=== PATIENT | male | born 1985 | race Caucasian/White ===

== ENCOUNTER 2017-06-16 16:00 | Emergency (ER) | payer OTHER ==
[~2017-06-16] VITALS: Ht 188 cm; Wt 72.3 kg
[2017-06-16 16:11] VITALS: BP 133/63
[2017-06-16] MEDS ORDERED: KETOROLAC 30 MG/ML VIAL IVP ONE (16:30)
--- NOTE | 2017-06-16 16:30 | NUR ---
PT. ARRIVED TO ED WITH C/O OF NON RADIATING SHARP CHEST PAIN IN THE MID LEFT CHEST AREA . PT. STATED " CHEST PAIN HAPPENED WHEN I WAS DRIVING ABOUT 3 HOURS AGO AND LASTED ABOUT 20 MIN THEN WENT AWAY, BUT I DID HAVE SOME NUMBNESS/ TINGLING IN MY LEFT ARM BUT NO PAIN, SOMETHING SIMILAR HAPPENED TO ME LAST WEEK WHEN I WENT HIKING BUT WENT AWAY WELL ". RR IS EVEN AND UNLABORED. A NORMAL SINUS RHYTHM IS PRESSENT ON THE MONITOR. VSS. PAIN LEVEL OF 2/10 RIGHT NOW STILL IN CHEST NON RADIATING. DENIES ANY NAUSEA AND VOMITING AT THIS TIME OR DIAHRRHEA, NO SOB OR COUGH AT THIS TIME . MD NOTIFIED , WILL CONTINUE TO MONITOR.
[2017-06-16 16:58] LABS: BASOPHILS # (AUTO) 0.1 K/uL (0.00-0.22); BASOPHILS % (AUTO) 2.4 % (0.0-2.0); EOSINOPHILS # (AUTO) 0.1 K/uL (0-0.4); EOSINOPHILS % (AUTO) 1.9 % (0.0-4.0); HEMATOCRIT 40.5 % (36-52); HEMOGLOBIN 13.9 g/dL (12.0-18.0); LYMPHOCYTES # (AUTO) 2.2 K/uL (2.0-11.5); LYMPHOCYTES % (AUTO) 39.6 % (20.5-51.1); MEAN CORPUSCULAR HEMOGLOBIN 32 pg (27-31); MEAN CORPUSCULAR HGB CONC 34 g/dL (33-37); MEAN CORPUSCULAR VOLUME 93.4 fL (80-94); MONOCYTES # (AUTO) 0.3 K/uL (0.8-1.0); MONOCYTES % (AUTO) 4.6 % (1.7-9.3); NEUTROPHILS # (AUTO) 2.9 K/uL (1.8-7.7); NEUTROPHILS % (AUTO) 51.5 % (42.2-75.2); PLATELET COUNT (AUTO) 297 K/uL (140-450); RED BLOOD CELL COUNT(AUTO) 4.34 MIL/uL (4.20-6.10); RED CELL DISTRIBUTION WIDTH 12.2 % (11.6-13.7); WHITE BLOOD COUNT (AUTO) 5.6 K/uL (4.8-10.8)
[2017-06-16 16:58] LABS: APPEARANCE,URINE CLEAR (CLEAR); BILIRUBIN,URINE NEGATIVE (NEGATIVE); BLOOD, URINE NEGATIVE (NEGATIVE); LEUKOCYTE ESTERASE ,URINE NEGATIVE (NEGATIVE); NITRITE, URINE NEGATIVE (NEGATIVE); PH,URINE 7.5 (5.0-9.0); UGLUCOSE NEGATIVE (NEGATIVE)
[2017-06-16 17:02] LABS: COLOR,URINE STRAW (YELLOW)
[2017-06-16 17:08] LABS: BARBITURATE, URINE NEG. ng/ml (NEG <=200); BENZODIAZEPINE, URINE NEG. ng/mL (NEG <=200); CANNABINOID, URINE NEG. ng/mL (NEG <=50); COCAINE, URINE NEG. ng/mL (NEG <=300); OPIATE, URINE NEG. ng/mL (NEG <=2000); PHENCYCLIDINE SCREEN,URINE NEG. ng/mL (NEG <=25)
[2017-06-16 17:10] LABS: ANION GAP 9.9 (8-16); CARBON DIOXIDE 30.6 mmol/L (21-32); CHLORIDE 105 mmol/L (98-107); CREATININE 0.8 mg/dL (0.7-1.3); GFR ARICAN-AMERICAN 145 mL/min (>90); GLUCOSE 186 mg/dL (74-106); POTASSIUM 3.5 mmol/L (3.5-5.1); SODIUM SERUM 142 mmol/L (136-145); UREA NITROGEN, BLOOD 14 mg/dL (7-18)
[2017-06-16 17:16] LABS: PROTHROMBIN TIME 10.8 secs (10.8-13.4)
[2017-06-16 17:17] LABS: ALBUMIN 3.8 g/dL (3.4-5.0); ASPARTATE AMINOTRANSFERASE 21 U/L (15-37); TOTAL BILIRUBIN 0.4 mg/dL (0.0-1.0)
--- NOTE | 2017-06-16 17:30 | NUR ---
PT. IN BED RESTING, VSS, RR EVEN AND UNLABORED, BED IN LOWEST POSITION, AAO X 4. WILL CONTUINUE TO MONITOR.
[2017-06-16 18:15] VITALS: BP 108/71
--- NOTE | 2017-06-16 18:15 | NUR ---
Patient discharged with v/s stable. Written and verbal after care instructions given and explained. Patient alert, oriented and verbalized understanding of instructions. Ambulatory with steady gait. All questions addressed prior to discharge. ID band removed. Patient advised to follow up with PMD. Rx of MOTRIN 800 MG given. Patient educated on indication of medication including possible reaction and side effects. Opportunity to ask questions provided and answered.
== END 2017-06-16 18:15 | disposition home or self-care (01) ==
LOC: MED 16:00
DX: R07.89 Other chest pain (principal)
CPT/HCPCS: 36415; 71045; 80053; 80305; 81003; 82550; 84484; 85025; 85610; 85730; 93005; 96374; 99285; G0482; J1885; Q0092

== ENCOUNTER 2017-11-20 12:35 | Emergency (ER) | payer OTHER ==
[~2017-11-20] VITALS: Ht 188 cm; Wt 63.5 kg
[2017-11-20 12:41] VITALS: BP 140/83
[2017-11-20 14:40] VITALS: BP 138/79
== END 2017-11-20 14:40 | disposition home or self-care (01) ==
LOC: MED 12:35
DX: R42 Dizziness and giddiness (principal); J32.9 Chronic sinusitis, unspecified
CPT/HCPCS: 99283

== ENCOUNTER 2019-03-06 00:14 | Emergency (ER) | payer OTHER ==
[~2019-03-06] VITALS: Ht 188 cm; Wt 63.5 kg
[2019-03-06 00:15] VITALS: BP 122/76
--- NOTE | 2019-03-06 00:15 | NUR ---
TO BED # 03 AMBULATORY
--- NOTE | 2019-03-06 00:35 | NUR ---
33 Y/O MALE ARRIVED FOR CHEST PAIN X YESTERDAY. PAIN COMES AND GOES AND DOESNT RADIATE ANYWHERE. RATES PAIN 6/10 WHEN IT HAPPENS AND DESCRIBES IT SHARP FEELING. LUNG SOUNDS CLEAR ALL THROUGHOUT. HEART SOUND S1S2 PRESENT. VSS. PT STATES THE CHEST PAIN STARTED YESTERDAY AFTERNOON. A & O X4. NO SOB. NO RESP DISTRESS NOTED. NO USE OF ACCESSORY MUSCLE. NKA. NO PMH.
[2019-03-06 00:46] LABS: HEMOGLOBIN 14.6 g/dL (12.0-18.0); WHITE BLOOD COUNT (AUTO) 6.5 K/uL (4.8-10.8)
[2019-03-06 00:52] LABS: BASOPHILS # (AUTO) 0.1 K/uL (0.00-0.22); EOSINOPHILS # (AUTO) 0.2 K/uL (0-0.4); EOSINOPHILS % (AUTO) 3.2 % (0.0-4.0); HEMATOCRIT 42.4 % (36-52); LYMPHOCYTES # (AUTO) 3.4 K/uL (2.0-11.5); LYMPHOCYTES % (AUTO) 51.9 % (20.5-51.1); MEAN CORPUSCULAR HEMOGLOBIN 32 pg (27-31); MEAN CORPUSCULAR HGB CONC 34 g/dL (33-37); MEAN CORPUSCULAR VOLUME 93.4 fL (80-94); MONOCYTES # (AUTO) 0.6 K/uL (0.8-1.0); NEUTROPHILS # (AUTO) 2.2 K/uL (1.8-7.7); NEUTROPHILS % (AUTO) 33.9 % (42.2-75.2); PLATELET COUNT (AUTO) 289 K/uL (140-450); RED BLOOD CELL COUNT(AUTO) 4.54 MIL/uL (4.20-6.10)
[2019-03-06 00:54] LABS: ANION GAP 13.3 (8-16); CARBON DIOXIDE 30.6 mmol/L (21-32); CREATININE 0.9 mg/dL (0.7-1.3); POTASSIUM 3.9 mmol/L (3.5-5.1)
[2019-03-06 01:39] VITALS: BP 122/76
== END 2019-03-06 00:15 | disposition home or self-care (01) ==
LOC: MED 00:14
DX: R07.89 Other chest pain (principal)
CPT/HCPCS: 36415; 71046; 80048; 84484; 85025; 93005; 99284

== ENCOUNTER 2022-11-12 19:51 | Emergency (ER) | payer OTHER ==
[~2022-11-12] VITALS: Ht 188 cm; Wt 68.0 kg
[2022-11-12 20:00] VITALS: BP 134/89; PULSE 77; RESP 17; TEMP 97.7; O2SAT 99
[2022-11-12] MEDS ORDERED: KETOROLAC 30 MG/ML VIAL IM ONE (20:20)
[2022-11-12] MEDS ORDERED: NAPR-54 PO (21:58)
[2022-11-12] MEDS ORDERED: ACET-2619 PO (21:58)
[2022-11-12] MEDS ORDERED: HYDROcodone/APAP 5/325 MG 1 TAB TAB PO ONE (22:10)
[2022-11-12 22:21] VITALS: BP 115/67; PULSE 66; RESP 17; O2SAT 99
== END 2022-11-12 22:20 | disposition home or self-care (01) ==
LOC: MED 19:51
DX: S66.811A Strain of other specified muscles, fascia and tendons at wrist and hand level, right hand, initial encounter (principal); X58.XXXA Exposure to other specified factors, initial encounter; Y93.89 Activity, other specified; Y92.89 Other specified places as the place of occurrence of the external cause; Y99.8 Other external cause status
CPT/HCPCS: 29125; 73110; 96372; 99283; J1885